=== PATIENT | female | born 1955 | race Caucasian/White ===

== ENCOUNTER 2024-08-15 07:28 | Emergency (ER) | payer MEDICARE, SELFPAY ==
[2024-08-15 07:38] VITALS: BP 151/88; PULSE 74; RESP 17; TEMP 36.6; O2SAT 94; BMI 29.2
--- NOTE | 2024-08-15 08:02 | ED_ITS ---
HPI - Chest Pain General Time Seen by Provider: 08:03 Date Seen: 08/15/24 Chief Complaint: Chest Pain Stated Complaint: chest pain Time Seen by Provider: 08/15/24 08:01 Source: patient and RN notes reviewed Mode of arrival: ambulatory Limitations: no limitations History of Present Illness HPI narrative: This 69-year-old female is coming in with concern of chest pain. Around midnight she had some left to central substernal deeper chest pain, is an ache that there and sometimes has a pulsating feeling. She took 2 baby aspirin and went to bed, felt like it did help. It awoke her at 4:00 a.m.. She took 2 more 81 mg aspirin. Did not really help. She still has the pain there. It has been associated with some left otalgia, some weird sensation in her left thumb, not numbness tingling, maybe intermittent discomfort that she has felt in her left thumb with this. Right now it is minimal, 2/10. There is no change with breathing, no GI symptoms. She has no prior heart history or history of clots. She has not had any recent illness, no recent respiratory symptoms. She has no prior lung history per report. She did just travel back from [place] a week ago via car. She is postmenopausal, on no hormone therapy, no tobacco products. She has a son and a granddaughter who of had coarctation of the aorta. Her son has atrial fibrillation and congestive heart failure now. There is maybe a maternal or paternal grandparent that is had an RI. she does note that overnight she had a cramp in her calf which is not typical for her. Related Data Home Medications ?Medication ?Instructions ?Recorded ?Confirmed No Known Home Medications 08/15/24 08/15/24 Allergies Allergy/AdvReac Type Severity Reaction Status Date / Time Sulfa (Sulfonamide Allergy Rash Verified 08/15/24 07:37 Antibiotics) Review of Systems Status of ROS Reports: 6 or more systems reviewed and unremarkable except as noted in History and below [facility] Social History Smoking Status: Never smoker Second hand tobacco smoke exposure: No How often do you have a drink containing alcohol: never How often do you have six or more drinks on one occasion: Never AUDIT-C Alcohol total score: 0 Non-prescribed substance use: denies use service: No Exam Const Vital Signs, click to edit/add: Vital Signs - 24 hr 05/16/25 07:38 08/15/24 08:12 Temperature 97.8 F Pulse Rate [Pulse Oximeter] 74 Respiratory Rate 17 Blood Pressure [Right Upper Arm] 151/88 H Pulse Oximetry 94 95 Oxygen Delivery Method Room Air This 69-year-old female is alert, interactive, no apparent distress. Sq clear, face atraumatic, symmetrical facial function. Left tympanic membrane appears normal. Neck supple, no adenopathy, no jugular venous distension, no thyromegaly masses or nodules. Lungs are clear, good air entry, no wheeze or crackles, no tachypnea, no accessory muscle use. CV regular rate and rhythm, no murmur, normal S1-S2, no S3-S4. Abdomen is soft, nontender, nondistended, no organomegaly, rebound or guarding. She has no lower extremity edema, no calf tenderness. Patient was ambulatory into the ED of her own accord. Her left thumb currently has no symptoms, is fully mobile, normal warmth and cap refill. Documenting provider has reviewed patient's vital signs: yes Course Course ED Course: This patient is presenting with chest pain, do have concern that this could represent ischemic disease. She will be getting EKG, cardiac monitoring, pulse oximetry. Will try sublingual nitroglycerin to see if it does resolve her pain. She had recent car travel, thromboembolic disease certainly could be a potential possibility. Will do full complement of labs. She does understand that she may need CT imaging to look at other etiologies. Does not sound to be gastrointestinal but will certainly do some screening GI labs. Intra-abdominal pathology can refer to the chest. She currently is hemodynamically stable. Did discuss that if she does get a headache from the nitroglycerin we can give her some Tylenol. Reevaluation(s) Time of Reevaluation #1: 09:56 Reevaluation #1: Have reviewed with patient her initial troponin is normal. She got 1 sublingual nitroglycerin, initially maybe did not help but now she feels like her pain is almost gone. Her D-dimer is normal but she has had recent travel. We did discuss proceeding with doing chest CT PE protocol to rule out intrathoracic pathology. She would like to proceed with this. We will do follow-up EKG and troponin in a little bit. Time of Reevaluation #2: 11:52 Reevaluation #2: Did review with this patient her CT. There are absolutely no coronary calcifications seen on her CT, no pulmonary emboli, no acute cardiothoracic issues. She did have thyroid abnormality. She does report she had a history of a fine needle aspiration years ago. I do think she should have a follow-up ultrasound and thyroid functions done in clinic. She can discuss with her primary care provider her symptoms and if they decide to do any cardiac stress testing. I will leave that to her primary. Her chest symptoms are gone now. We do not have a definitive etiology as for why she had discomfort but there is no apparent life-threatening issue. Vital Signs Vital signs: Initial Vital Signs Temperature 97.8 F 08/15/24 07:38 Temperature Source Temporal Artery Scan 08/15/24 07:38 Pulse Rate 74 08/15/24 07:38 Respiratory Rate 17 08/15/24 07:38 Blood Pressure 151/88 H 08/15/24 07:38 Blood Pressure Mean 109 H 08/15/24 07:38 Pulse Oximetry 94 08/15/24 07:38 Oxygen Delivery Method Room Air 08/15/24 07:38 Vital Signs Temperature 97.8 F 08/15/24 07:38 Pulse Rate 74 08/15/24 07:38 Respiratory Rate 17 08/15/24 07:38 Blood Pressure 151/88 H 08/15/24 07:38 Pulse Oximetry 94 08/15/24 07:38 Oxygen Delivery Method Room Air 08/15/24 07:38 Temperature 97.8 F 08/15/24 07:38 Pulse Rate 74 08/15/24 07:38 Respiratory Rate 17 08/15/24 07:38 Blood Pressure 151/88 H 08/15/24 07:38 Pulse Oximetry 95 08/15/24 08:12 Oxygen Delivery Method Room Air 08/15/24 07:38 Medications Administered Medications: Generic Name Dose Route Start Last Admin Trade Name Freq PRN Reason Stop Dose Admin Nitroglycerin 0.4 mg 08/15/24 08:16 08/15/24 08:53 Nitroglycerin 0.4 Mg Tab.Subl SUBLINGUAL 0.4 mg Q5M PRN Administration cp MDM - Chest Pain Lab Data Attestation: I reviewed the patient's lab results. Labs: Lab Results 05/16/25 05/16/25 05/16/25 Range/Units 08:13 08:30 10:53 WBC 5.15 (4.50-11.00) K/uL RBC 4.08 (4.00-5.20) m/uL Hgb 12.2 (12.0-16.0) gm/dL Hct 37.2 (33.0-51.0) % MCV 91 (80-100) fL MCH 30 (26-34) pg MCHC 33 (32-36) gm/dL RDW Coeff of Jesus 13.8 (11.5-15.5) % Plt Count 309 (140-440) K/uL Neut % (Auto) 57.4 (42.0-72.0) % Lymph % (Auto) 32.0 (20-44) % [place] % (Auto) 8.3 (0.0-11.0) % Eos % (Auto) 1.7 (0.0-7.0) % Baso % (Auto) 0.6 (0.0-3.0) % Neut # (Auto) 2.95 (1.7-7.0) K/uL Lymph # (Auto) 1.65 (0.90-2.90) K/uL [place] # (Auto) 0.40 (0.00-0.90) K/UL Eos # (Auto) 0.09 (0.00-0.50) K/uL Baso # (Auto) 0.03 (0.00-0.30) K/uL Abs Immat Gran (auto) 0.00 (0.00-0.30) K/uL Imm/Tot Granulo (auto) 0.0 % INR 0.89 L (0.91-1.10) APTT 26 (23-33) Seconds D-Dimer Quant (PE/DVT) 0.31 (0.00-0.50) ug/ml Sodium 140 (135-149) mmol/L Potassium 3.6 (3.6-5.1) mmol/L Chloride 106 (96-114) mmol/L Carbon Dioxide 28 (20-32) mmol/L Anion Gap 6 L (7-15) mEq/L BUN 16 (7-30) mg/dL Creatinine 0.7 (0.5-1.5) mg/dL Estimated Creat Clear 47.14 Estimated GFR 95 ml/min Glucose 96 (60-115) mg/dL Calcium 8.8 (8.4-10.6) mg/dL Total Bilirubin 0.5 (0.1-1.5) mg/dL Direct Bilirubin 0.2 (0.0-0.5) mg/dL AST 31 (12-35) U/L ALT 27 (4-35) U/L Alkaline Phosphatase 81 (40-150) U/L Troponin I < 0.01 (0.01-0.04) ng/mL C-Reactive Protein 0.7 (0.5-1.0) mg/dL NT-Pro-B Natriuret Pep 163 pg/mL Total Protein 7.2 (6.0-8.3) g/dL Albumin 4.2 (3.3-5.0) g/dL Lipase 171 (23-300) U/L POC Troponin I 0.00 L 0.00 L (0.01-0.04) ng/ml Imaging Data Chest x-ray: Attestation: I have reviewed the pertinent imaging results. My impression: I see no acute cardiopulmonary pathology on my preliminary review. Radiologist's impression: Patient: ANAI RIVAS Facility:?[facility] Patient ID:?[id number] Site Patient ID:?[id number]. Site :?1955 Study:?XRay-Chest PORTABLE-08/15/2024 8:47:38 AM Ordering Physician:Adriano Meredith Final Report: INDICATION: Chest pain, not otherwise described. COMPARISON: None available. TECHNIQUE: Single AP view of the chest. FINDINGS: Medical Devices: None. Lung Volumes: Adequate inspiration. No significant atelectasis. Lungs: Clear lungs. Pleura and Pleural spaces: No significant pleural effusion. No pneumothorax. Mediastinum: Normal cardiomediastinal silhouette. Bony Thorax and Soft Tissues: No significant incidental findings. Dextroconvex curvature of the lower thoracic spine with a minor compensatory leftward curvature of the upper thoracic spine. IMPRESSION: No findings to explain the clinical history. Incidental findings described in the body of the report. Dictated by Holland Rich MD @ 08/15/2024 8:51:15 AM (Electronic Signature) CT scan - chest: Attestation: I have reviewed the pertinent imaging results. Radiologist's impression: Patient: ANAI RIVAS Facility:?[facility] Patient ID:?[id number] Site Patient ID:?[id number]. Site :?1955 Study:?CT-Chest Angio W/ ISOVUE 370-08/15/2024 11:10:34 AM Ordering Physician:Adriano Meredith Final Report: Indication: Chest pain, recent travel Technique: CTA chest, pulmonary embolism protocol, utilizing 95 mL Isovue 370 Comparison: Same day chest radiograph Findings: Subcentimeter right thyroid nodule. Enlargement of the left thyroid gland with heterogeneous enhancement and 7 millimeter calcification at the inferior pole. No pathologically enlarged lymph nodes throughout the thorax. Mild cardiomegaly. No CT evidence of right heart strain. No pericardial effusion. No coronary artery calcifications. The thoracic aorta and pulmonary artery are normal in caliber. There is no pulmonary embolism. No focal airspace consolidation, pleural effusion, or pneumothorax. Minimal biapical pleural/parenchymal scarring. Minimal bibasilar atelectasis. No suspicious pulmonary nodules or masses. Tiny calcified granulomas in the bilateral lower lobes. The imaged upper abdomen is without acute abnormality. Small hiatal hernia. Pectus excavatum; otherwise, the bones are unremarkable. Impression: 1. No CT evidence of an acute process involving the thorax; specifically, no pulmonary embolism. 2. Subcentimeter right thyroid nodule and enlarged, heterogeneously enhancing left thyroid gland with lower pole calcification. Recommend outpatient thyroid ultrasound if not recently performed. Please note that all CT scans at this facility use dose modulation, iterative reconstruction, and/or weight-based dosing when appropriate to reduce radiation dose to as low as reasonably achievable. Dictated by Javier Berry MD @ 08/15/2024 11:32:23 AM (Electronic Signature) ECG Data Attestation: I personally reviewed and interpreted this ECG as follows: (Normal sinus rhythm, 64 beats per minute. Poor R-wave progression anterior precordial leads with flipped T-waves but no definite ST segment change.) ECG interpretation date: 08/15/24 ECG interpretation time: 08:20 Prior ECG tracings: not available for review Discharge Plan Discharge Clinical Impression: Chest pain Qualifiers: Chest pain type: unspecified Qualified Code(s): R07.9 - Chest pain, unspecified Patient Disposition: Home, Self-Care Condition: Stable Instructions: Chest Pain (ED), Noncardiac Chest Pain (ED) Additional Instructions: Please schedule follow-up with your primary care clinic as soon as possible. Need to bring the CT report with, have thyroid ultrasound and thyroid functions updated. Also would recommend discussion of cardiac stress testing with your primary care provider. In the interim, if you have return or worsening of symptoms, develop new or concerning symptoms, please seek re-evaluation. Activity Level: No Restrictions and Activity as Tolerated Prescriptions: No Action No Known Home Medications Follow Up/Referrals: Provider,Not a Local [Primary Care Provider] - Stand Alone Forms: [employer] Info Instructions
[2024-08-15 08:12] VITALS: O2SAT 95
--- NOTE | 2024-08-15 08:12 | CRLHL7_ITS ---
For Patients: As a result of the Century Cures Act, medical imaging exams and procedure reports are released immediately into your electronic medical record. You may view this report before your referring provider. If you have questions, please contact your health care provider. INDICATION: Chest pain, not otherwise described. COMPARISON: None available. TECHNIQUE: Single AP view of the chest. FINDINGS: Medical Devices: None. Lung Volumes: Adequate inspiration. No significant atelectasis. Lungs: Clear lungs. Pleura and Pleural spaces: No significant pleural effusion. No pneumothorax. Mediastinum: Normal cardiomediastinal silhouette. Bony Thorax and Soft Tissues: No significant incidental findings. Dextroconvex curvature of the lower thoracic spine with a minor compensatory leftward curvature of the upper thoracic spine. IMPRESSION: No findings to explain the clinical history. Incidental findings described in the body of the report. Dictated by Holland Rich MD @ 08/15/2024 8:51:15 AM (Electronically Signed)
[2024-08-15 08:42] LABS: Basophils Absolute Auto 0.03 K/uL (0.00-0.30); Basophils Percent Auto 0.6 % (0.0-3.0); Eosinophils Absolute Auto 0.09 K/uL (0.00-0.50); Eosinophils Percent Auto 1.7 % (0.0-7.0); Hematocrit 37.2 % (33.0-51.0); Hemoglobin* 12.2 gm/dL (12.0-16.0); Lymphocytes Absolute Auto 1.65 K/uL (0.90-2.90); Mean Corpuscular HGB Conc 33 gm/dL (32-36); Mean Corpuscular Hemoglobin 30 pg (26-34); Mean Corpuscular Volume 91 fL (80-100); Monocytes Percent Auto 8.3 % (0.0-11.0); Neutrophils Absolute Auto 2.95 K/uL (1.7-7.0); Neutrophils Percent Auto 57.4 % (42.0-72.0); Platelet Count* 309 K/uL (140-440); RDW Coefficient of Variation % 13.8 % (11.5-15.5); Red Blood Count 4.08 m/uL (4.00-5.20); White Blood Count* 5.15 K/uL (4.50-11.00)
--- OUTSIDE RECORDS SUMMARY | 2024-08-15 08:45 | XMS_ITS | Clinical Summary ---
Author Organization [facility] Address [address] [place] [id number] Care Team Providers Care Cloth Hauler Name Role Phone Sancho Wilhelm MD Primary Care Provider [phone]- [phone] Allergies Active Allergy Reactions Criticality Noted Date Comments Sulfa Antibiotics RASH 07/09/2023 Medications No known medications Active Problems No known active problems Social History Tobacco Use Types Packs/Day Years Used Date Smoking Tobacco: Never Smokeless Tobacco: Never Inadequate Housing Answer Date Recorded Social Determinants: Housing (Overall Score Help er) 0 07/09/2023 Comments Unknown Sex and Gender Information Value Date Recorded Sex Assigned at Not on file Legal Sex Female 11:14 AM CDT Gender Identity Not on file Sexual Orientation Not on file Obstetrics History Last Filed Vital Signs Vital Sign Reading Time Taken Comments Blood Pressure 126/70 07/09/2023 11:23 AM CDT Pulse 74 07/09/2023 11:23 AM CDT Temperature 36.9 C (98.4 F) 07/09/2023 11:23 AM CDT No fever reducers taken in last 4 hours. Respiratory Rate 16 07/09/2023 11:2 3 AM CDT Oxygen Saturation 96% 07/09/2023 11: 23 AM CDT Inhaled Oxygen Concentration - - Weight 78.2 kg (172 lb 6.4 oz) 07/09/2023 11:23 AM CDT Height - - Body Mass Index - - Plan of Treatment Health Maintenance Due Date Last Done Comments Depression Screening 1969 Breast Cancer Screening 1997 CT Colonography 2002 Cologuard 2002 Colonoscopy 2002 Colorectal Cancer Screening 2002 Fecal Occult Blood 2002 Sigmoidoscopy 2002 Pneumococcal Vaccine 50+ (1 of 1 - PCV) 2007 Shingles Vaccine (1 of 2) 2007 Hepatitis C Screening 2008 Osteoporosis Screening 2022 COVID-19 Vaccine (1 - 2023-2 5 season) 2023 Medicare Advantage- Medicare Wellness Visit 04/02/2024 Influenza Vaccine (Season Ended) 2024 DTaP/Tdap/Td Vaccine (2 - Td or Tdap) 08/24/2030 08/24/2020 Respiratory Syncytial Virus (RSV) Vaccine 60+ (1 - 1-dose 75+ series) 2032 HPV Vaccine Aged Out No longer eligi ble based on patient's age to complete this topic Hepatitis A Vaccine Aged Out No longe r eligible based on patient's age to complete this topic Hepatitis B Vaccine (For Physician/APC Discussion) Aged Out No longer elig ible based on patient's age to complete this topic Meningococcal Serogroup B Vaccine Aged Out No longer eligible based on patient's age to complete this topic Meningococcal Vaccine Aged Out No andres angelita eligible based on patient's age to complete this topic Insurance [id number] [id number] [employer] MEDICARE ADVANTAGE [id number] [place] [id number] [employer] MEDICARE ADVANTAGE Care Teams Cloth Hauler Relationship Specialty Start Date End Date Sancho Wilhelm MD [address] [address] PCP - General Family Practice 07/09/23
--- OUTSIDE RECORDS SUMMARY | 2024-08-15 08:45 | XMS_ITS | Referral Summary ---
Author Organization [facility] Address [address] [place] [address] Care Team Providers Care Sport Psychologist Name Role Phone Sancho Wilhelm MD Primary Care Provider [phone]- [phone] Allergies Active Allergy Reactions Criticality Noted Date [...] on file Sexual Orientation Not on file Last Filed Vital Signs Vital Sign Reading [...] Mass Index - - Plan of Treatment Not on file Insurance [employer] MEDICARE ADVANTAGE [id number] [id number] [employer] MEDICARE ADVANTAGE Member Subscriber Plan / Payer (Ef fective 2023-Present) Name:Dorie Bryan Relation to Subscriber:Self Name:Dorie Bryan Payer ID:[id number] (NAIC) Type:MEDICARE Address: [place] [id number] Care Teams Sport Psychologist Relationship Specialty Start Date End Date Sancho Wilhelm MD [address] [place] [phone] [place] [address] PCP - General Family Practice 07/09/23
--- OUTSIDE RECORDS SUMMARY | 2024-08-15 08:45 | XMS_ITS | Clinical Summary ---
Author Organization [facility] Address [address] [place] [address] Phone Care Team Providers Care Educational Program Director Name Role Phone Sancho Wilhelm MD Primary Care Provider +1- [phone] Allergies Active Allergy Reactions Criticality Noted Date Comments Sulfa Antibiotics Rash 01/07/2021 Medications Hydrocortisone ([facility] CORTISONE + MAX ST EX) by Apply externally route as needed. Active diphenhydrAMINE (Benadryl Allergy) 25 MG Capsule Take 25 mg by mouth every 6 hours as needed. Active Immunizations Immunization Administration Dates Next Due Covid-19, Mrna, Lnp-s, PF, 1 00 mcg/0.5 mL Dose (Moderna) 07/31/2020,07/03/2020 TDAP Vaccine 08/24/2020 Social History Tobacco Use Types Packs/Day Years Used Date Smoking Tobacco: Never Smokeless Tobacco: Never Tobacco Cessation:Counseling Given: Yes Alcohol Use Standard Drinks/Week Comments Yes 1 (1 standard drink = 0.6 oz pur e alcohol) Comments No Sex and Gender Information Value Date Recorded Sex Assigned at Not on file Legal Sex Female 12:39 PM CDT Gender Identity Not on file Sexual Orientation Not on file Last Filed Vital Signs Vital Sign Reading Time Taken Comments Blood Pressure 126/82 01/07/2021 2:42 PM EDT Pulse 66 01/07/2021 2:42 PM EDT Temperature 36.8 C (98.2 F) 01/07/2021 2:42 PM EDT Respiratory Rate 18 01/07/2021 2:42 PM EDT Oxygen Saturation 98% 01/07/2021 2:42 PM EDT Inhaled Oxygen Concentration - - Weight 77.1 kg (170 lb) 01/07/2021 2:42 PM EDT Height - - Body Mass Index - - Plan of Treatment Health Maintenance Due Date Last Done Comments DEXA Bone Density 1955 Hepatitis C Virus (HCV) Screening 1955 Colonoscopy 2002 Colorectal Cancer Screening 2002 Cologuard 2007 Immunochemical Fecal Occult Blood 2007 Mammogram 2007 Pneumococcal Immunization (5 0+ years) (1 of 1 - PCV) 2007 Zoster Immunization (1 of 2) 2007 Influenza Immunization (#1) 2023 SARS-COV-2 Immunization ( - 2023- season) 2023 07/31/2020, 07/03/2020 Respiratory Syncytial Virus (RSV) Immunization (Adult) (1 - 1-dose 75+ series) 2032 DTaP/Tdap/Td Immunization Discontinued 08/24/2020 Hepatitis B Immunization Aged Out No longer eligible based on patient's age to complete this topic Meningococcal Immunization (ACWY) Aged Out No longer eligible based on patient's age to complete this topic Rotavirus Immunization Aged Out No lo nger eligible based on patient's age to complete this topic Insurance * Guarantor: Dorie Bryan Account Type Relation to Patient Date of Phone Billing Address Personal/Family Self 1955 [id number] [facility] [address] [place] [address] [facility] Care Teams Educational Program Director Relationship Specialty Start Date End Date Sancho Wilhelm MD S[address] [address] PCP - General Family Medicine 01/07/21
[2024-08-15] MEDS: NITROGLYCERIN 0.4 MG TAB.SUBL SUBLINGUAL (08:53)
[2024-08-15 09:04] LABS: Albumin* 4.2 g/dL (3.3-5.0); Chloride* 106 mmol/L (96-114); Potassium* 3.6 mmol/L (3.6-5.1); Slide Review Reflex No; Sodium* 140 mmol/L (135-149)
[2024-08-15 09:06] LABS: Blood Urea Nitrogen* 16 mg/dL (7-30); Creatinine* 0.7 mg/dL (0.5-1.5); Est. Creatinine Clearance* 47.14; Estimated Glomerular Filt Rate 95 ml/min; INR 0.89 (0.91-1.10); Prothrombin Time 12.8 Seconds
[2024-08-15 09:07] LABS: Alanine Aminotransferase* 27 U/L (4-35); Alkaline Phosphatase* 81 U/L (40-150); Anion Gap 6 mEq/L (7-15); Aspartate Amino Transferase* 31 U/L (12-35); Bilirubin Direct* 0.2 mg/dL (0.0-0.5); Bilirubin Total* 0.5 mg/dL (0.1-1.5); Calcium* 8.8 mg/dL (8.4-10.6); Carbon Dioxide* 28 mmol/L (20-32); Glucose* 96 mg/dL (60-115); Lipase* 171 U/L (23-300); Partial Thromboplastin Time* 26 Seconds (23-33); Total Protein* 7.2 g/dL (6.0-8.3)
[2024-08-15 09:09] LABS: D Dimer Quantitative* 0.31 ug/ml (0.00-0.50)
[2024-08-15 09:10] LABS: C Reactive Protein* 0.7 mg/dL (0.5-1.0)
[2024-08-15 09:25] LABS: NT Pro B Type NatriureticPept* 163 pg/mL; Troponin I* < 0.01 ng/mL (0.01-0.04)
--- NOTE | 2024-08-15 10:03 | CRLHL7_ITS ---
For Patients: As a result of the Century Cures Act, medical imaging exams and procedure reports are released immediately into your electronic medical record. You may view this report before your referring provider. If you have questions, please contact your health care provider. Indication: Chest pain, recent travel Technique: CTA chest, pulmonary embolism protocol, utilizing 95 mL Isovue 370 Comparison: Same day chest radiograph Findings: Subcentimeter right thyroid nodule. Enlargement of the left thyroid gland with heterogeneous enhancement and 7 millimeter calcification at the inferior pole. No pathologically enlarged lymph nodes throughout the thorax. Mild cardiomegaly. No CT evidence of right heart strain. No pericardial effusion. No coronary artery calcifications. The thoracic aorta and pulmonary artery are normal in caliber. There is no pulmonary embolism. No focal airspace consolidation, pleural effusion, or pneumothorax. Minimal biapical pleural/parenchymal scarring. Minimal bibasilar atelectasis. No suspicious pulmonary nodules or masses. Tiny calcified granulomas in the bilateral lower lobes. The imaged upper abdomen is without acute abnormality. Small hiatal hernia. Pectus excavatum; otherwise, the bones are unremarkable. Impression: 1. No CT evidence of an acute process involving the thorax; specifically, no pulmonary embolism. 2. Subcentimeter right thyroid nodule and enlarged, heterogeneously enhancing left thyroid gland with lower pole calcification. Recommend outpatient thyroid ultrasound if not recently performed. Please note that all CT scans at this facility use dose modulation, iterative reconstruction, and/or weight-based dosing when appropriate to reduce radiation dose to as low as reasonably achievable. Dictated by Javier Berry MD @ 08/15/2024 11:32:23 AM (Electronically Signed)
== END 2024-08-15 12:14 | disposition home or self-care (01) ==
PROVIDERS: Emergency Provider Family Medicine
DX: R07.9 Chest pain, unspecified (principal); H92.02 Otalgia, left ear; M62.831 Muscle spasm of calf; Z82.49 Family history of ischemic heart disease and other diseases of the circulatory system
CPT/HCPCS: 36415; 71045; 71275; 80048; 80076; 83690; 83880; 84484; 85025; 85379; 85610; 85730; 86140; 93005; 94761; 99284; 99285; A9270; Q9967